=== PATIENT | female | born 1970 ===

== ENCOUNTER 2017-02-28 08:39 | Emergency (ER) | payer OTHER ==
[~2017-02-28] VITALS: Ht 144.8 cm; Wt 75.3 kg
[~2017-02-28 08:39] MED LIST: AFRIN PUMPMIST15 ML NASB; ANTIVERT 25MG #1 PAC PO; ASPIRIN EC325 M2 PO; ATORVASTATIN CA20 M1 PO; BACLOFEN10 M1 PO; BACTRIM DS 8001 TAB PO; BAYER ASPIRIN R81 MG PO; BENTYL20 MG PO; BENZONATATE200 MG PO; CENTRUM1 TA1 PO; COMPRESSION STOCKING; COZAAR25 M1 PO; DEPO SC; DIOVAN 40 MG40 MG PO; FLUTICASON0.05 MG/Ac NASB; HYDROXYZINE HCL50 M1 PO; LOSARTAN POTASS50 MG PO; MELOXICAM7.5 M1 PO; METOPROLOL TART50 MG PO; MOBIC7.5 M1 PO; NASONEX0.05 MG/Ac INH; NITROSTAT0.4 MG SL; OXYCODONE5 MG PO; PEPCID20 MG PO; PERCOCET 5-3251 EACH PO; PREDNISONE 20MG20 MG PO; SINGULAIR10 M1 PO; SINGULAIR10 MG PO; TOPROL XL25 M1 PO; TYLENOL #31 TAB PO; ULTRAM(MONOGRAP50 MG PO; VICODIN7.5-300 PO; ZITHROMAX250 M2 PO; ZOFRAN ODT4 MG PO; ZYRTEC ALLERGY10 MG PO; ZYRTEC10 M3 PO
--- NOTE | 2017-02-28 09:56 | CT SCAN REPORT ---
EXAMINATION: CT ABDOMEN AND PELVIS WITHOUT CONTRAST CLINICAL INFORMATION: Left flank pain. COMPARISON: CT abdomen and pelvis from 05/14/2013. TECHNIQUE: Multidetector volumetric imaging was performed from the superior aspect of the liver through the pubic symphysis. Sagittal and coronal reformatted images were obtained on the technologist's workstation. DLP: 403 mGy-cm FINDINGS: LUNG BASES: The visualized lung bases are unremarkable. LIVER, GALLBLADDER, AND BILIARY TREE: The liver is normal in size, shape, and attenuation. No focal hepatic lesion or biliary ductal dilatation. The gallbladder is unremarkable with no evidence of radiopaque gallstones, gallbladder wall thickening, or pericholecystic inflammatory changes. PANCREAS: Unremarkable. SPLEEN: Unremarkable. ADRENAL GLANDS: Unremarkable. KIDNEYS AND URETERS: Kidneys have normal size, cortical thickness and attenuation. There are small, 2-3 mm calculi at the upper and mid right kidney and lower pole of the left kidney. Ureters are normal in caliber; no evidence of ureterolithiasis or hydroureteronephrosis. BLADDER: Unremarkable. GASTROINTESTINAL TRACT: Stomach is unremarkable. Loops of bowel are normal in size. Appendix is normal. No evidence of inflammation or obstruction along the gastrointestinal tract. ABDOMINAL WALL: No significant findings. LYMPH NODES: No pathologic sized lymph nodes within the abdomen or pelvis. VASCULAR: Unremarkable for a noncontrast examination. PELVIC VISCERA: The uterus is anteflexed. No adnexal masses. Small, physiologic amount of free fluid is present within the pelvic cul-de-sac. OSSEOUS STRUCTURES: Unremarkable. IMPRESSION: 1. No acute imaging abnormalities within the abdomen or pelvis. 2. Bilateral nephrolithiasis without evidence of ureterolithiasis or obstructive uropathy.
[2017-02-28] MEDS ORDERED: IBUPROFEN600 M1 PO (10:15)
[2017-02-28] MEDS ORDERED: BACLOFEN10 M1 PO (10:15)
--- NOTE | 2017-02-28 10:16 | ED GI/GU/ABDOMINAL COMPLAINT ---
History of Present Illness General Chief Complaint: Abdominal Pain/Flank Pain Stated Complaint: FLANK PAIN AND LOW BACK PAIN Source: patient, old records Exam Limitations: no limitations Vital Signs & Intake/Output Vital Signs & Intake/Output Vital Signs Date Time Temp Pulse Resp B/P Pulse O2 O2 Flow FiO2 Ox Delivery Rate 02/28 0854 98.3 86 20 143/86 99 Room Air Allergies Coded Allergies: milk (Intermediate, RASH 06/20/16) quetiapine (Severe, EYES ROLLED BACK IN HEAD 06/20/16) risperidone (Intermediate, MAKES ME MOVE LIKE A ROBOT 06/20/16) Reconcile Medications Aspirin (Ecotrin*) 325 MG TABLET.DR 1 TAB PO DAILY HEART HEALTH (Reported) Atorvastatin Calcium 20 MG TABLET 1 TAB PO DAILY CHOLESTEROL (Reported) Baclofen 10 MG TABLET 1 TAB PO TIDPRN PRN muscle spasm/strain Cetirizine HCl (Zyrtec) 10 MG TABLET 1 TAB PO PRN ALLERGIES (Reported) Losartan Potassium (Cozaar) 25 MG TABLET 1 TAB PO DAILY HEART (Reported) Medroxyprogesterone Acetate (Depo-Subq Provera 104) 104 MG/0.65 ML SYRINGE 1 INJ SC Q3M BC (Reported) Metoprolol Succ XL (Toprol XL) 25 MG TAB 1 TAB PO DAILY HTN (Reported) Montelukast Sodium (Singulair) 10 MG TABLET 1 TAB PO DAILY ALLERGIES ( Reported) Oxycodone HCl/Acetaminophen (Percocet 5-325 MG Tablet) 1 EACH TABLET 1 TAB PO Q6PRN PRN severe pain Triage Note: PT TO ED "I THINK I HAVE KIDNEY STONES". C/O LEFT FLANK PAIN "ON AND OFF FOR 2 WEEKS", WORSE YESTERDAY. DENIES S/S. Triage Nurses Notes Reviewed? yes LMP (ages 10-50): unknown ? n Is pt currently ? No Onset: 2 weeks Duration: week(s):, changing over time, continues in ED, waxing and waning Timing: recent history Quality/Severity: aching, mild, moderate Location: left flank Radiation: no radiation Activities at Onset: none Prior Abdominal Problems: similar symptoms Past Sexual History: Unobtainable at this time No Modifying Factors: none Associated Symptoms: abdominal pain, nausea/vomiting HPI: Patient complains of chronic mid back pain currently undergoing physical therapy with exacerbation after first appointment several days ago. 2 weeks prior to admission she complains of left flank pain similar to kidney stone pain described as mild to moderate sharp nonradiating associated with nausea. She denies fever chills vomiting diarrhea chest pain cough shortness of breath headache dysuria rash bleeding . Past History Travel History Traveled to [place] past 21 day No Medical History Any Pertinent Medical History? 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 No Review of Systems Review of Systems Constitutional: Reports: no symptoms. EENTM: Reports: no symptoms. Respiratory: Reports: no symptoms. Cardiovascular: Reports: no symptoms. GI: Reports: no symptoms. Genitourinary: Reports: see HPI, pain. Musculoskeletal: Reports: see HPI, back pain. Skin: Reports: no symptoms. Neurological/Psychological: Reports: no symptoms. Hematologic/Endocrine: Reports: no symptoms. Immunologic/Allergic: Reports: no symptoms. All Other Systems: Reviewed and Negative Physical Exam Physical Exam General Appearance: well developed/nourished, alert, awake, anxious, mild distress, obese Head: atraumatic, normal appearance Eyes: Bilateral: normal appearance, PERRL, EOMI, normal inspection. Ears, Nose, Throat, Mouth: hearing grossly normal, moist mucous membrane Neck: normal inspection, supple, full range of motion, normal alignment, no midline tenderness Respiratory: normal breath sounds, chest non-tender, no respiratory distress, quiet respiration, lungs clear Cardiovascular: regular rate/rhythm, bradycardia, norml femoral pulses equa Peripheral Pulses: 4+ carotid (R), 4+ carotid (L) Gastrointestinal: normal bowel sounds, soft, non-tender, no organomegaly Back: normal inspection, decreased range of motion, muscle spasm, no vertebral tenderness Extremities: normal range of motion, no ligament instability Neurologic/Psych: no motor/sensory deficits, awake, alert, oriented x 3, normal gait, normal mood/affect Skin: intact, normal color, warm/dry Core Measures ACS in differential dx? No Severe Sepsis Present: No Septic Shock Present: No Progress Differential Diagnosis: kidney stone, pancreatitis, peptic ulcer, UTI/pyelo Plan of Care: Orders Procedure Date/time Status URINALYSIS 02/28 1010 Complete Current Medications Sig/Deborah Start time Last Medication Dose Stop Time Status Admin Cyclobenzaprine HCl 10 MG ONCE ONE 02/28 1100 CANr (Flexeril 10MG Tab) 02/28 110 Ibuprofen 600 MG ONCE ONE 02/28 1100 UNVr (Motrin) 02/28 110 Laboratory Tests 02/28/17 1028: Urinalysis LIGHT H, Urine Color YEL, Urine Clarity HAZY H, Urine pH 6.0, Ur Specific [place] 1.020, Urine Protein NEG, Urine Ketones NEG, Urine Nitrite NEG, Urine Bilirubin NEG, Urine Urobilinogen 0.2, Ur Leukocyte Esterase SMALL H, Ur Microscopic SEDIMENT EXAMINED, Urine RBC 3-5, Urine WBC 3-5 H, Ur Epithelial Cells MANY H, Urine Bacteria MANY H, Hyaline Casts RARE H, Urine Mucus FEW, Urine Hemoglobin TRACE-INTACT, Urine Glucose NEG Diagnostic Imaging: Viewed by Me: CT Scan. Discussed w/RAD: CT Scan. Radiology Impression: 1. No acute imaging abnormalities within the abdomen or pelvis. 2. Bilateral nephrolithiasis without evidence of ureterolithiasis or obstructive uropathy. Initial ED EKG: none Departure Departure Time of Disposition: 1008 Disposition: HOME OR SELF CARE Condition: Stable Clinical Impression Primary Impression: Flank pain, acute Secondary Impressions: Strain of back Qualifiers: Encounter type: initial encounter Qualified Code: S39.012A - Strain of muscle, fascia and tendon of lower back, initial encounter Referrals: ZHANG ZUÑIGA MD Call for urology follow up LENNY ADAIR MD (PCP/Family) Departure Forms: Customer Survey General Discharge Information Prescriptions: Current Visit Scripts Baclofen 1 TAB PO TIDPRN PRN muscle spasm/strain #30 TAB Oxycodone HCl/Acetaminophen (Percocet 5-325 MG Tablet) 1 TAB PO Q6-PRN PRN severe pain #15 TAB
[2017-02-28] MEDS ORDERED: PERCOCET 5-3251 EACH PO (11:04)
[2017-02-28 11:18] VITALS: BP 140/74
== END 2017-02-28 11:20 ==
LOC: ERH 08:39
DX: S39.012A Strain of muscle, fascia and tendon of lower back, initial encounter (principal); R10.32 Left lower quadrant pain; X58.XXXA Exposure to other specified factors, initial encounter; Y92.9 Unspecified place or not applicable; Y93.9 Activity, unspecified
CPT/HCPCS: 74176; 81001

== ENCOUNTER 2017-03-14 10:07 | Emergency (ER) | payer OTHER ==
[~2017-03-14] VITALS: Ht 144.8 cm; Wt 74.8 kg
[~2017-03-14 10:07] MED LIST changes: +IBUPROFEN600 M1 PO
[2017-03-14 10:20] VITALS: BP 179/99
[2017-03-14] MEDS ORDERED: PERCOCET 5-3251 EACH PO (10:27)
--- NOTE | 2017-03-14 10:28 | ED NECK/BACK PAIN COMPLAINT ---
History of Present Illness General Chief Complaint: Low Back Pain/Injury Stated Complaint: BACK PAIN Source: patient, old records Exam Limitations: no limitations Vital Signs & Intake/Output Vital Signs & Intake/Output Vital Signs Date Time Temp Pulse Resp B/P B/P Pulse O2 O2 Flow FiO2 Mean Ox Delivery Rate 03/14 1020 98.3 76 18 179/99 100 Room Air Allergies Coded Allergies: milk (Intermediate, RASH 06/20/16) quetiapine (Severe, EYES ROLLED BACK IN HEAD 06/20/16) risperidone (Intermediate, MAKES ME MOVE LIKE A ROBOT 06/20/16) Reconcile Medications Aspirin (Ecotrin*) 325 MG TABLET.DR 1 TAB PO DAILY HEART HEALTH (Reported) Atorvastatin Calcium 20 MG TABLET 1 TAB PO DAILY CHOLESTEROL (Reported) Baclofen 10 MG TABLET 1 TAB PO TIDPRN PRN muscle spasm/strain Cetirizine HCl (Zyrtec) 10 MG TABLET 1 TAB PO PRN ALLERGIES (Reported) Losartan Potassium (Cozaar) 25 MG TABLET 1 TAB PO DAILY HEART (Reported) Medroxyprogesterone Acetate (Depo-Subq Provera 104) 104 MG/0.65 ML SYRINGE 1 INJ SC Q3M BC (Reported) Metoprolol Succ XL (Toprol XL) 25 MG TAB 1 TAB PO DAILY HTN (Reported) Montelukast Sodium (Singulair) 10 MG TABLET 1 TAB PO DAILY ALLERGIES ( Reported) Oxycodone HCl/Acetaminophen (Percocet 5-325 MG Tablet) 5 MG-325 MG TABLET 1-2 TAB PO Q6P PRN PAIN Oxycodone HCl/Acetaminophen (Percocet 5-325 MG Tablet) 1 EACH TABLET 1 TAB PO Q6PRN PRN severe pain Oxycodone HCl/Acetaminophen (Percocet 5-325 MG Tablet) 5 MG-325 MG TABLET 1 TAB PO Q6-PRN PRN severe pain Triage Note: C/O R LOWER BACK AND HIP PAIN X 2 DAYS, STATES SHE WAS IN PT AT [facility] WHEN SHE PULLED A MUSCLE. ON BACLOFEN, BUT NOT HELPING. Triage Nurses Notes Reviewed? yes HPI: Patient goes to physical therapy for his low back pain. Patient was told to use a therapy ball. Patient uses on Sunday and the wall slipped lower than it should go so she had a sudden onset of increased pain in her right lower back. Pain is constant and increases with movement. Patient went to physical therapy this morning and they told her to come to the emergency room for refill for her pain medication. Patient has been taking baclofen as a muscle relaxer. Patient denies any numbness or tingling. The pain is 10 out of 10 and increases with movement. The pain radiates into her right buttocks. There are no fevers or chills. There is no incontinence of bowel or bladder. Past History Travel History Traveled to [place] past 21 day No Medical History Any Pertinent Medical History? 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 No Review of Systems Review of Systems Constitutional: Reports: no symptoms. Ears, Nose, Throat, Mouth: Reports: no symptoms. Respiratory: Reports: no symptoms. Cardiovascular: Reports: no symptoms. Musculoskeletal: Reports: see HPI, back pain. Neurological/Psychological: Reports: no symptoms. Physical Exam Physical Exam General Appearance: well developed/nourished, alert, awake, anxious, moderate distress Eyes: Bilateral: PERRL, EOMI. Ears, Nose, Throat, Mouth: hearing grossly normal, moist mucous membrane Neck: normal inspection, supple, full range of motion Respiratory: normal breath sounds, chest non-tender, no respiratory distress, lungs clear Cardiovascular: regular rate/rhythm, normal peripheral pulses Back: muscle spasm, no vertebral tenderness Straight Leg Raising: Right: Negative. Left: Negative. Neurologic/Psych: no motor/sensory deficits, awake, alert, oriented x 3, normal gait, normal mood/affect Progress Differential Diagnosis: herniated disc, myofascial strain, T/L spine injury Plan of Care: pain meds and pt Departure Departure Disposition: HOME OR SELF CARE Condition: Stable Clinical Impression Primary Impression: Muscle strain Referrals: LENNY ADAIR MD Additional Instructions: ontinue with physical therapy Departure Forms: Customer Survey General Discharge Information Prescriptions: Current Visit Scripts Oxycodone HCl/Acetaminophen (Percocet 5-325 MG Tablet) 1-2 TAB PO Q6P PRN PAIN #15 TAB
== END 2017-03-14 10:31 ==
LOC: ERH 10:07
DX: S39.012A Strain of muscle, fascia and tendon of lower back, initial encounter (principal); X58.XXXA Exposure to other specified factors, initial encounter; Y93.89 Activity, other specified; Y92.89 Other specified places as the place of occurrence of the external cause

== ENCOUNTER 2017-03-31 10:25 | Emergency (ER) | payer OTHER ==
[~2017-03-31] VITALS: Ht 144.8 cm; Wt 75.8 kg
[2017-03-31 12:29] VITALS: BP 165/88
[2017-03-31 12:38] LABS: ABSOLUTE BASOPHIL COUNT 0 /CUMM (0.0-0.2); ABSOLUTE EOSINOPHIL COUNT 0.2 /CUMM (0.0-0.7); ABSOLUTE GRANULOCYTE CT 4.5 /CUMM (1.4-6.5); ABSOLUTE LYMPH COUNT 2.4 /CUMM (1.2-3.4); ABSOLUTE MONOCYTE COUNT 0.8 /CUMM (0.10-0.60); BASOPHIL % 0.4 % (0.0-2.0); EOSINOPHIL % 2.3 % (0-5); GRANULOCYTE % 56.7 % (42.2-75.2); HEMATOCRIT 45.3 % (37-47); MEAN CORPUSCULAR HGB 28.5 PG (27.0-31.0); MEAN CORPUSCULAR HGB CONC 33.1 G/DL (33.0-37.0); MEAN CORPUSCULAR VOLUME 85.9 FL (81.0-99.0); MEAN PLATELET VOLUME 9.3 FL (7.4-10.4); PLATELET COUNT 288 /CUMM (130-400); RBC DISTRIBUTION WIDTH 14.4 % (11.5-14.5); RED BLOOD CELL CT 5.27 /CUMM (4.20-5.40)
[2017-03-31] MEDS ORDERED: AZITHROMYCIN250 M1 PO (13:19)
[2017-03-31] MEDS ORDERED: ZOFRAN ODT4 M1 SL (13:19)
--- NOTE | 2017-03-31 13:20 | ED GI/GU/ABDOMINAL COMPLAINT ---
History of Present Illness General Chief Complaint: General Adult Stated Complaint: PT STATES "I ATE RECALLED PANCAKES" Source: patient Exam Limitations: no limitations Allergies Coded Allergies: milk (Intermediate, RASH 06/20/16) quetiapine (Severe, EYES ROLLED BACK IN HEAD 06/20/16) risperidone (Intermediate, MAKES ME MOVE LIKE A ROBOT 06/20/16) Triage Note: TRIAGE: 47 Y/O FEMALE PRESENTS C/O "I ATE 10 RECALLED [employer]UN[employer] PANCAKES. I HAD THE SYMPTOMS THAT THE FDA HAD MENTIONED." LAST EPISODE OF DIARRHEA ON SUNDAY. Triage Nurses Notes Reviewed? yes ? N Is pt currently ? No HPI: This patient is a 47-year-old female who presented to the emergency department today for evaluation of ingesting recalled Aunt [employer]aden pancakes. The patient reported that she was watching TV this morning and saw that his pancakes were recall. She reported that she thinks that she ate 10 of them in January or February. She reported that she was looking of symptoms online and noted that she has been having diarrhea, last episode was on Sunday or . No blood in the diarrhea. She reported that she does get some abdominal cramping associated as well as nausea. She denied any vomiting. She did report that she had a sharp headache last night, but not currently she is also experiencing some photosensitivity. Patient denies any neck pain, difficulty breathing, chest pain, fevers, chills, or any other associated symptoms. She reported that she called a number online and he told her to come to the emergency department. (EMMANUEL GARRETT,BRIANA) Vital Signs & Intake/Output Vital Signs & Intake/Output ED Intake and Output 04/01 0000 03/31 1200 Intake Total Output Total Balance Patient 167 lb Weight Weight Reported by Patient Measurement Method Reconcile Medications Aspirin (Ecotrin*) 325 MG TABLET.DR 1 TAB PO DAILY HEART HEALTH (Reported) Atorvastatin Calcium 20 MG TABLET 1 TAB PO DAILY CHOLESTEROL (Reported) Azithromycin 250 MG TABLET 1 DP PO AD sinusitis 2 the first day followed by 1 for days 2-5 Baclofen 10 MG TABLET 1 TAB PO TIDPRN PRN muscle spasm/strain Cetirizine HCl (Zyrtec) 10 MG TABLET 1 TAB PO PRN ALLERGIES (Reported) Losartan Potassium (Cozaar) 25 MG TABLET 1 TAB PO DAILY HEART (Reported) Medroxyprogesterone Acetate (Depo-Subq Provera 104) 104 MG/0.65 ML SYRINGE 1 INJ SC Q3M BC (Reported) Metoprolol Succ XL (Toprol XL) 25 MG TAB 1 TAB PO DAILY HTN (Reported) Montelukast Sodium (Singulair) 10 MG TABLET 1 TAB PO DAILY ALLERGIES ( Reported) Ondansetron (Zofran Odt) 4 MG TAB.RAPDIS 1 TAB SL TID PRN nausea Oxycodone HCl/Acetaminophen (Percocet 5-325 MG Tablet) 5 MG-325 MG TABLET 1-2 TAB PO Q6P PRN PAIN Oxycodone HCl/Acetaminophen (Percocet 5-325 MG Tablet) 1 EACH TABLET 1 TAB PO Q6PRN PRN severe pain Oxycodone HCl/Acetaminophen (Percocet 5-325 MG Tablet) 5 MG-325 MG TABLET 1 TAB PO Q6-PRN PRN severe pain (BRIAN GUEVARA,LAURA) Past History Travel History Traveled to [place] past 21 day No Medical History Any Pertinent Medical History? 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 No (BRIANA BENITEZ PA-C) Review of Systems Review of Systems Constitutional: Reports: no symptoms. EENTM: Reports: no symptoms. Respiratory: Reports: no symptoms. Cardiovascular: Reports: no symptoms. GI: Reports: see HPI. Genitourinary: Reports: no symptoms. Musculoskeletal: Reports: no symptoms. Skin: Reports: no symptoms. Neurological/Psychological: Reports: see HPI. All Other Systems: Reviewed and Negative (BRIANA BENITEZ PA-C) Physical Exam Physical Exam Gastrointestinal: normal bowel sounds, soft, non-tender, no organomegaly, no rebound or guarding. Nondistended. No McBurney's point tenderness. Negative Rovsing sign. Negative psoas sign. Negative Nugent sign. Comments: Well-developed well-nourished person in no acute distress HEENT: Normal EENT exam, head normocephalic, moist mucous membranes PERRLA bilaterally. EOMI bilaterally Nose is atraumatic. Neck: Supple, no lymphadenopathy. No midline tenderness. Full range of motion. No meningeal signs Back: Normal gait. Normal inspection Cardiovascular: Regular rate and rhythm with no murmurs, rubs, gallops Respiratory: No respiratory distress. Breath sounds clear to auscultation bilaterally with no wheezes, rales, rhonchi Extremity: Normal and equal pulses Neuro: Alert oriented x3, cranial nerves II through XII grossly intact. Skin: No appreciable rash on exposed skin, skin is warm and dry. Psych: Mood and affect is normal, memory and judgment is normal. Core Measures ACS in differential dx? No Severe Sepsis Present: No Septic Shock Present: No (BRIANA BENITEZ PA-C) Progress Differential Diagnosis: appendicitis, biliary colic, bowel obstruction, colon cancer, cholecystitis, diverticulitis, gastritis, hepatitis, ischemic bowel, inflamm bowel dis, kidney stone, pancreatitis, PID/cervicitis, PUD/GERD, perforated viscous, UTI/pyelo, gastroenteritis, Listeria Plan of Care: Orders Procedure Date/time Status COMPREHENSIVE METABOLIC PANEL 03/31 1201 Complete CBC WITHOUT DIFFERENTIAL 03/31 1201 Complete Laboratory Tests 03/31/17 1213: Anion Gap 13, Estimated GFR > 60, BUN/Creatinine Ratio 8.8, Glucose 86, Calcium 9.4, Total Bilirubin 1.0, AST 23, ALT 37, Alkaline Phosphatase 97, Total Protein 7.7, Albumin 4.7, Globulin 3.0, Albumin/Globulin Ratio 1.6, CBC w Diff NO MAN DIFF REQ, RBC 5.27, MCV 85.9, MCH 28.5, RDW 14.4, MPV 9.3, Gran % 56.7, Lymphocytes % 30.5, Monocytes % 10.1 H, Eosinophils % 2.3, Basophils % 0.4, Absolute Granulocytes 4.5, Absolute Lymphocytes 2.4, Absolute Monocytes 0.8 H, Absolute Eosinophils 0.2, Absolute Basophils 0, PUBS MCHC 33.1 Initial ED EKG: none (BRIANA BENITEZ PA-C) Departure Departure Disposition: HOME OR SELF CARE Condition: Stable Clinical Impression Primary Impression: Gastroenteritis Referrals: FEDERICO GUEVARA,SNOW Silvestre (PCP/Family) Additional Instructions: Take antibiotic as prescribed for sinusitis. Take Zofran as prescribed for nausea. Return for any worsening symptoms. Please attend your previously scheduled appointment with your primary care physician on Sunday. Departure Forms: Customer Survey General Discharge Information Prescriptions: Current Visit Scripts Azithromycin 1 DP PO AD #6 TAB 2 the first day followed by 1 for days 2-5 Ondansetron (Zofran Odt) 1 TAB SL TID PRN nausea #10 TAB (EMMANUEL GARRETT,BRIANA) PA/ELECTRICAL ENGINEERING DIRECTOR Co-Sign Statement Statement: ED Attending supervision documentation- I saw and evaluated the patient. I have also reviewed all the pertinent lab results and diagnostic results. I agree with the findings and the plan of care as documented in the PA's/ELECTRICAL ENGINEERING DIRECTOR's documentation. x I have reviewed the ED Record and agree with the PA's/ELECTRICAL ENGINEERING DIRECTOR's documentation. [] Additions or exceptions (if any) to the PAs/ELECTRICAL ENGINEERING DIRECTOR's note and plan are summarized below: [] (BRIAN GUEVARA,LAURA)
== END 2017-03-31 13:31 ==
LOC: ERH 10:25
PROVIDERS: Physician Assistant
DX: K52.9 Noninfective gastroenteritis and colitis, unspecified (principal)